=== PATIENT | female | born 1960 ===

== ENCOUNTER → 2016-10-29 | Day surgery (SDC) | payer OTHER ==
[~2016-10-29] MED LIST: BUPIVACAINE HCL PF 0.5% 10 ML VIAL ONE; KETOROLAC TROMETHAMINE 30 MG/ML (IVP) VIAL ONE; LACTATED RINGER'S 1000 ML INJ 1,000 ML ONE; MIDAZOLAM HCL 2 MG/2 ML VIAL ONE; ONDANSETRON HCL 4 MG/2 ML VIAL IV PUSH ONE; PROPOFOL 200 MG/20 ML AMP IV ONE; ceFAZolin 2 GM PREMIX 50 ML ONE
--- NOTE | 2016-10-29 17:39 | TN ---
cc: PAZ HUSSEIN DATE OF SURGERY: 10/29/2016. PRINCIPAL DIAGNOSIS: Microcalcifications in the upper inner and upper outer left breast with lobular carcinoma in situ. SURGEON: Paz Hussein MD. ANESTHESIA: General via LMA device. INDICATIONS FOR THE PROCEDURE: The patient is 56-year-old female noted to have an area of faint posterior microcalcifications in the upper inner left breast and a second area in the upper outer left breast. Stereotactic biopsy of the two o'clock calcifications demonstrated lobular carcinoma in situ and the patient now presents for a needle-localized excision of both areas of calcification. The upper inner area could not be sampled utilizing a stereotactic technique because of the posterior location. FINDINGS AT THE TIME OF SURGERY: Specimen mammogram did demonstrate an intact wire in the two o'clock location and the biopsy cavity was present within the tissue. It should be noted that the biopsy clip migrated at the time of the needle localization and was approximately 3 cm away from the biopsied area. The ten o'clock sample demonstrated calcifications and an intact wire. DESCRIPTION OF THE PROCEDURE IN DETAIL: After informed consent was obtained and site verification was performed, the patient was brought to the radiology suite where she underwent needle localization of her upper inner ten o'clock microcalcifications and upper outer two o'clock microcalcifications. She was then brought to the major operating room where she underwent general anesthesia via an LMA device. The left breast was prepped and draped in sterile fashion. A periareolar incision was identified at twelve o'clock and anesthetized with 0.5% Marcaine plain. Sharp and electrocautery dissection were then performed until the wire entry point through the skin was identified and secured with a hemostat. The two o'clock location was localized first and the two o'clock wire was cut off at the skin. A 2-0 silk transfixion suture was placed at the wire entry point into the breast tissue and electrocautery dissection was then performed circumferentially around the wire. The specimen was oriented with two sutures anteriorly, one short suture superiorly, and one long suture laterally and the lesion was identified at two o'clock 4 cm from the nipple. This was removed and sent for radiologic evaluation as well as pathologic evaluation. Hemostasis was easily obtained with electrocautery. Through this same incision, electrocautery and sharp dissection was performed until the ten o'clock wire entry point was identified through the skin. The wire was secured with a hemostat and cut off at the skin. There was very little wire left in the breast tissue in this location, but a 2-0 silk transfixion suture was placed at the wire entry point into the breast and electrocautery dissection was performed beyond the tip of the wire in this location. This specimen was oriented with two sutures anteriorly, one short suture superiorly, and one long suture medially. The specimen was located at ten o'clock 6 cm from the nipple and was quite posterior adjacent to the pectoralis muscle. Good hemostasis was noted and this specimen was also sent for mammographic evaluation as well as pathology. The wound was closed using interrupted 3-0 Vicryl subcutaneous sutures and a 4-0 Monocryl subcuticular suture. Steri-Strips and sterile dressings were applied. The patient tolerated the procedure well with an estimated blood loss of 100 mL and she was extubated in the operating room and brought to the recovery room in good condition. All sponge and needle counts were correct at the conclusion of the case. MD JORGE Saab/ANGELA /4:10 PM /5:32 PM
== END | disposition home or self-care (01) ==
LOC: ESDC 11:43
PROVIDERS: ATTEND Surgery
DX: D05.02 Lobular carcinoma in situ of left breast (principal)
CPT/HCPCS: 00400; 19125; 19126; 88307; J0690; J1885; J2250; J2405; J3010; J7120